=== PATIENT | male | born 1965 | race Caucasian/White ===

== ENCOUNTER 2024-01-13 06:07 | Day surgery (SDC) | payer MEDICARE ==
[2024-01-13 06:36] LABS: HEMATOCRIT 42.6 % (38.4-49.7); HEMOGLOBIN 14.8 g/dL (12.9-16.9); MEAN CORPUSCULAR HEMOGLOBIN 30.5 pg (31.6-35.5); MEAN CORPUSCULAR HGB CONC 34.7 g/dL (31.6-35.5); MEAN CORPUSCULAR VOLUME 87.7 fL (81.4-99.0); RED BLOOD CELL COUNT 4.86 M/uL (4.14-5.76); WHITE BLOOD CELL COUNT,WBC 5.5 K/uL (3.2-11.0)
[2024-01-13 07:02] LABS: A/G RATIO 1.2 (1.2-2.2); ALANINE AMINOTRANSFERASE,ALT 33 U/L (12-78); ALKALINE PHOSPHATASE 71 U/L (46-116); ANION GAP 9.6 mmol/L (5.0-14.0); ASPARTATE AMNIOTRANSFERASE,AST 24 U/L (15-37); BILIRUBIN TOTAL 0.8 mg/dL (0.2-1.0); BLOOD UREA NITROGEN,BUN 19 mg/dL (7-18); CALCIUM 8.4 mg/dL (8.5-10.1); CARBON DIOXIDE,CO2 26 mmol/L (21-32); CHLORIDE,CL 105 mmol/L (100-108); CREATININE 1.1 mg/dL (0.8-1.3); EST CRCL DRUG DOSING (CG) 73.48 mL/min; ESTIMATED GFR 77 mL/min (>60); GLUCOSE RANDOM 100 mg/dL (74-106); POTASSIUM,K 4.3 mmol/L (3.6-5.2); PROTEIN TOTAL,TP 7.4 g/dL (6.4-8.2); SODIUM,NA 141 mmol/L (140-148)
[2024-01-13] MEDS: Sodium Chloride 0.9% 1,000 ML IV SCH (07:15)
[2024-01-13] MEDS ORDERED: fentaNYL 250 MCG/5 ML SDV ONE ×2 (07:21→08:27)
[2024-01-13] MEDS ORDERED: Succinylcholine 200 MG/10 ML MDV ONE (07:22)
[2024-01-13] MEDS ORDERED: Rocuronium 50 MG/5 ML Vial ONE ×2 (07:22→08:54)
[2024-01-13] MEDS ORDERED: Neostigmine Methylsulfate 10 MG/10 ML MDV ONE (07:22)
[2024-01-13] MEDS ORDERED: Propofol 200 MG/20 ML SDV ONE (07:22)
[2024-01-13] MEDS ORDERED: Ondansetron 4 MG/2 ML SDV ONE (07:22)
[2024-01-13] MEDS ORDERED: Glycopyrrolate 0.2 MG/ML 5 ML MDV ONE (07:22)
[2024-01-13] MEDS ORDERED: Dexamethasone 4 MG/ML SDV ONE (07:22)
[2024-01-13] MEDS: metroNIDAZOLE/Normal Saline 500 MG in Premix Bag 1 BAG IV ONE (07:41)
[2024-01-13] MEDS: ceFAZolin 2 GM in Premix Bag 1 BAG IV ONE (08:18)
[2024-01-13] MEDS: Bupivacaine 0.5% 50 ML MDV ONE (08:36)
[2024-01-13] MEDS: Lidocaine 1% with EPINEPHrine 1:100,000 50 ML MDV ONE (08:37)
[2024-01-13] MEDS ORDERED: Lactated Ringers 1,000 ML ONE (09:33)
[2024-01-13] MEDS ORDERED: Ketorolac 30 MG/ML SDV ONE (10:19)
[2024-01-13] MEDS: Acetaminophen/HYDROcodone 325-5 MG Tab PO ONE (12:44)
[2024-01-15 17:29] LABS: HEPATITIS B SURFACE ANTIGEN Negative (Negative)
[2024-01-16 00:41] LABS: HCV QNT BY NAAT (IU/ML) Not Detected; HCV QNT BY NAAT (LOG IU/ML) Not Detected log IU/mL; HCV QNT BY NAAT INTERP Not Detected (Not Detected)
== END 2024-01-13 14:25 | disposition home or self-care (01) ==
LOC: JP.SDS 06:07
PROVIDERS: ATTEND Surgery
DX: K42.9 Umbilical hernia without obstruction or gangrene (principal); E66.9 Obesity, unspecified; Z68.41 Body mass index [BMI] 40.0-44.9, adult; G47.33 Obstructive sleep apnea (adult) (pediatric)
CPT/HCPCS: 36415; 49593; 80053; 85027; 87340; 87449; 87522; A9270; C1713; C1781; J0171; J0330; J0665; J0690; J1100; J1596; J1836; J1885; J2405; J2704; J2710; J2795; J3010; J3490; J7030; J7120